=== PATIENT | female | born 1990 | race Caucasian/White ===

== ENCOUNTER 2019-05-03 17:32 | Outpatient (CLI) | payer MEDICAID ==
[2019-05-03 21:12] LABS: ADD UMIC NO; UR ASCORBIC ACID NEGATIVE (NEGATIVE); UR BILIRUBIN (Dip) NEGATIVE (NEGATIVE); UR BLOOD (Dip) NEGATIVE (NEGATIVE); UR CLARITY SLIGHTLY CLOUDY (CLEAR); UR COLOR YELLOW (YELLOW); UR GLUCOSE (Dip) NEGATIVE (NEGATIVE); UR KETONES (Dip) NEGATIVE (NEGATIVE); UR LEUKOCYTE ESTERASE (Dip) NEGATIVE Leu/ul (NEGATIVE); UR MUCUS FEW /HPF (NONE SEEN); UR NITRITE (Dip) NEGATIVE (NEGATIVE); UR RBC 1 /HPF (0-5); UR SPECIFIC GRAVITY (Dip) 1.013 (1.003-1.030); UR SQUAMOUS EPITHELIAL CELL MODERATE /HPF (FEW); UR TOTAL PROTEIN (Dip) NEGATIVE (NEGATIVE); UR UROBILINOGEN (Dip) NEGATIVE (NEGATIVE); UR WBC 1 /HPF (0-5)
[2019-05-03] MEDS: LACTATED RINGER'S 1,000 ML IV ×2 (21:40→23:00)
[2019-05-03 22:39] LABS: ABNORMAL IP MESSAGE 1; ADD MAN DIFF? NO; BASOPHILS % 0.1 % (0.0-2.0); EOSINOPHILS # 0.1 10^3/ul (0.0-0.5); EOSINOPHILS % 0.7 % (0.0-7.0); HEMOGLOBIN 12.1 g/dl (12.0-16.0); LYMPHOCYTES # 2.5 10^3/ul (0.8-2.9); LYMPHOCYTES % 24.8 % (15.0-51.0); MEAN CORPUSCULAR HEMOGLOBIN 28.8 pg (29.0-33.0); MEAN CORPUSCULAR HGB CONC 32.7 g/dl (32.0-37.0); MEAN CORPUSCULAR VOLUME 88.1 fl (82.0-101.0); MEAN PLATELET VOLUME 14.1 fl (7.4-10.4); MONOCYTE # 0.6 10^3/ul (0.3-0.9); MONOCYTES % 6.3 % (0.0-11.0); NEUTROPHIL # 6.8 10^3/ul (1.6-7.5); NEUTROPHILS % 67.7 % (39.0-77.0); PLATELET COUNT 153 10^3/UL (140-415); RED CELL DISTRIBUTION WIDTH 13.7 % (11.5-14.5)
[2019-05-03 22:40] LABS: POSITIVE DIFF @See below
[2019-05-03 23:06] LABS: ALANINE AMINOTRANSFERASE 22 IU/L (13-69); ALBUMIN 3.3 g/dl (3.3-4.9); ALBUMIN/GLOBULIN RATIO 1.03; ALKALINE PHOSPHATASE 91 IU/L (42-121); ANION GAP 9 (5-13); ASPARTATE AMINO TRANSFERASE 31 IU/L (15-46); BILIRUBIN,INDIRECT 0.5 mg/dl (0-1.1); BILIRUBIN,TOTAL 0.5 mg/dl (0.2-1.3); BLOOD UREA NITROGEN 9 mg/dl (7-20); CALCIUM 9.3 mg/dl (8.4-10.2); CARBON DIOXIDE 21 mmol/L (21-31); CHLORIDE 107 mmol/L (97-110); CREATININE 0.44 mg/dl (0.44-1.00); Estimated GFR > 60 mL/min (>60); GLUCOSE 79 mg/dl (70-220); POTASSIUM 3.8 mmol/L (3.5-5.1); SODIUM 137 mmol/L (135-144); TOTAL PROTEIN 6.5 g/dl (6.1-8.1); URIC ACID 4.7 mg/dl (3.1-7.9)
== END 2019-05-04 00:40 | disposition home or self-care (01) ==
LOC: OBT 17:32 → L-D 17:33
DX: O26.893 Other specified pregnancy related conditions, third trimester (principal); R20.0 Anesthesia of skin; Z3A.35 35 weeks gestation of pregnancy
CPT/HCPCS: 76818; 80053; 81001; 81003; 84560; 85025; 96360; 96361

== ENCOUNTER 2019-05-17 17:43 | Inpatient (IN) | payer MEDICAID ==
[2019-05-17 18:32] LABS: WHITE BLOOD COUNT 10.2 10^3/ul (4.8-10.8)
[2019-05-17 18:32] LABS: ABNORMAL IP MESSAGE 1; HEMOGLOBIN 11.9 g/dl (12.0-16.0); MEAN CORPUSCULAR HEMOGLOBIN 29.5 pg (29.0-33.0); MEAN CORPUSCULAR HGB CONC 33.1 g/dl (32.0-37.0); MEAN CORPUSCULAR VOLUME 89.3 fl (82.0-101.0); PLATELET COUNT 122 10^3/UL (140-415); RED BLOOD COUNT 4.03 10^6/ul (4.20-5.40); RED CELL DISTRIBUTION WIDTH 13.8 % (11.5-14.5)
[2019-05-17 18:35] LABS: ADD UMIC NO; UR ASCORBIC ACID NEGATIVE (NEGATIVE); UR BILIRUBIN (Dip) NEGATIVE (NEGATIVE); UR BLOOD (Dip) NEGATIVE (NEGATIVE); UR CLARITY CLEAR (CLEAR); UR COLOR STRAW (YELLOW); UR GLUCOSE (Dip) NEGATIVE (NEGATIVE); UR KETONES (Dip) NEGATIVE (NEGATIVE); UR LEUKOCYTE ESTERASE (Dip) NEGATIVE Leu/ul (NEGATIVE); UR NITRITE (Dip) NEGATIVE (NEGATIVE); UR SPECIFIC GRAVITY (Dip) 1.004 (1.003-1.030); UR TOTAL PROTEIN (Dip) NEGATIVE (NEGATIVE); UR UROBILINOGEN (Dip) NEGATIVE (NEGATIVE)
[2019-05-17 18:52] LABS: POSITIVE DIFF @See below
[2019-05-17 18:53] LABS: ADD MAN DIFF? YES; ALANINE AMINOTRANSFERASE 29 IU/L (13-69); ALBUMIN 3.4 g/dl (3.3-4.9); ALBUMIN/GLOBULIN RATIO 1.17; ALKALINE PHOSPHATASE 91 IU/L (42-121); ANION GAP 8 (5-13); ASPARTATE AMINO TRANSFERASE 31 IU/L (15-46); BILIRUBIN,INDIRECT 0.3 mg/dl (0-1.1); BILIRUBIN,TOTAL 0.3 mg/dl (0.2-1.3); BLOOD UREA NITROGEN 9 mg/dl (7-20); CALCIUM 9.3 mg/dl (8.4-10.2); CARBON DIOXIDE 20 mmol/L (21-31); CHLORIDE 109 mmol/L (97-110); CREATININE 0.47 mg/dl (0.44-1.00); Estimated GFR > 60 mL/min (>60); GLUCOSE 83 mg/dl (70-220); POTASSIUM 4.1 mmol/L (3.5-5.1); SODIUM 137 mmol/L (135-144); TOTAL PROTEIN 6.3 g/dl (6.1-8.1); URIC ACID 4.9 mg/dl (3.1-7.9)
[2019-05-17 18:56] LABS: PROTIME 12.3 Sec (11.9-14.9)
[2019-05-17 18:57] LABS: PARTIAL THROMBOPLASTIN TIME 25.3 Sec (23.0-35.0)
[2019-05-17 19:39] LABS: ANISOCYTOSIS 2+ (0-0); BAND NEUTROPHILS #M 0.1 10^3/ul (0.0-0.6); BAND NEUTROPHILS % (M) 1 % (0-4); GIANT THROMBO% (M) 6 % (0-0); LYMPHOCYTES #M 1.5 10^3/ul (0.8-2.9); LYMPHOCYTES % (M) 15 % (15-51); MICROCYTOSIS 1+ (0-0); MONOCYTE #M 0.3 10^3/ul (0.3-0.9); MONOCYTES % (M) 3 % (0-11); PLATELET ESTIMATE DECREASED; POLYCHROMASIA 1+ (0-0); SEG NEUT #M 8.3 10^3/ul (1.6-7.5); SEGMENTED NEUTROPHILS (M) % 81 % (39-77); SMUDGE%M 5 % (0-0)
[2019-05-17] MEDS ORDERED: LACTATED RINGER'S 1,000 ML IV (19:50)
[2019-05-17] MEDS ORDERED: METHYLERGONOVINE 0.2 MG INJ IM (20:00)
[2019-05-17] MEDS ORDERED: AZITHROMYCIN 500MG/NS (PMX) 250 ML IV (20:00)
[2019-05-17] MEDS ORDERED: CARBOPROST 250 MCG INJ IM (20:00)
[2019-05-17] MEDS ORDERED: CEFAZOLIN 2 GM/50 ML (PMX) 50 ML IVPB (20:00)
[2019-05-17] MEDS ORDERED: OXYTOCIN 30 UNITS/LR 500 ML IV (20:00)
[2019-05-17] MEDS ORDERED: MISOPROSTOL 200 MCG TAB PR (20:00)
[2019-05-17] MEDS: LACTATED RINGER'S 1,000 ML IV (21:14)
[2019-05-17] MEDS: AMPICILLIN 2 GM/NS (PMX) 100 ML IV (21:39)
[2019-05-17] MEDS ORDERED: morphine SULFATE/PF (10 MG/10 ML) INJ (21:52)
[2019-05-17] MEDS ORDERED: FENTAnyl 50 MCG/ML VIAL (21:52)
[2019-05-17] MEDS ORDERED: CEFAZOLIN 1 GM INJ (22:00)
[2019-05-17] MEDS ORDERED: DEXAMETHASONE 4 MG/ML 1 ML INJ (22:03)
[2019-05-17] MEDS ORDERED: ONDANSETRON 4 MG INJ (22:03)
[2019-05-17] MEDS ORDERED: MIDAZOLAM 1 MG/ML 2 ML INJ (22:32)
[2019-05-17] MEDS ORDERED: HYDROmorphONE 0.5 MG/0.5 ML SYG IV (23:00)
[2019-05-17] MEDS ORDERED: ZOLPIDEM 5 MG TAB PO (23:00)
[2019-05-17] MEDS ORDERED: ONDANSETRON 4 MG INJ IV (23:00)
[2019-05-17] MEDS ORDERED: NALOXONE (0.4 MG/ML) INJ IV (23:00)
[2019-05-17] MEDS ORDERED: DIPHENHYDRAMINE 50 MG INJ (23:14)
[2019-05-18] MEDS: OXYTOCIN 30 UNITS/LR 500 ML IV ×2 (01:05→02:33)
[2019-05-18] MEDS: DIPHENHYDRAMINE 50 MG INJ IV (01:16)
[2019-05-18] MEDS: LACTATED RINGER'S 1,000 ML IV ×3 (02:22→16:54)
[2019-05-18] MEDS ORDERED: METHYLERGONOVINE 0.2 MG INJ IM (02:30)
[2019-05-18] MEDS ORDERED: MISOPROSTOL 200 MCG TAB PR (02:30)
[2019-05-18] MEDS ORDERED: OXYCODONE/ACETAMINOPHEN (5/325) TAB PO ×2 (02:30)
[2019-05-18] MEDS ORDERED: CARBOPROST 250 MCG INJ IM (02:30)
[2019-05-18] MEDS ORDERED: OXYTOCIN 30 UNITS/LR 500 ML IV (02:30)
[2019-05-18 04:59] LABS: ADD MAN DIFF? NO
[2019-05-18 05:10] LABS: WHITE BLOOD COUNT 16.3 10^3/ul (4.8-10.8)
[2019-05-18 05:10] LABS: BASOPHILS % 0.1 % (0.0-2.0); EOSINOPHILS % 0.1 % (0.0-7.0); HEMATOCRIT 37.5 % (37.0-47.0); HEMOGLOBIN 12.4 g/dl (12.0-16.0); LYMPHOCYTES % 6.7 % (15.0-51.0); MEAN CORPUSCULAR HEMOGLOBIN 29.4 pg (29.0-33.0); MEAN CORPUSCULAR HGB CONC 33.1 g/dl (32.0-37.0); MEAN CORPUSCULAR VOLUME 88.9 fl (82.0-101.0); MONOCYTES % 2.3 % (0.0-11.0); NEUTROPHIL # 14.7 10^3/ul (1.6-7.5); NEUTROPHILS % 90.2 % (39.0-77.0); PLATELET COUNT 122 10^3/UL (140-415); RED BLOOD COUNT 4.22 10^6/ul (4.20-5.40); RED CELL DISTRIBUTION WIDTH 13.8 % (11.5-14.5)
[2019-05-18 05:11] LABS: ABNORMAL IP MESSAGE 1; LYMPHOCYTES # 1.1 10^3/ul (0.8-2.9); MONOCYTE # 0.4 10^3/ul (0.3-0.9)
[2019-05-18 05:28] LABS: POSITIVE DIFF @See below
[2019-05-18] MEDS: SENNA/DOCUSATE NA (8.6MG/50MG) TAB PO ×2 (08:55→20:28)
[2019-05-18 14:57] LABS: RAPID PLASMA REAGIN NONREACTIVE (NR)
[2019-05-18] MEDS: LANOLIN HPA 1 PKT TOP (21:44)
[2019-05-18] MEDS: KETOROLAC 30 MG INJ IV (21:44)
[2019-05-19 05:14] LABS: ABNORMAL IP MESSAGE 1; ADD MAN DIFF? NO; BASOPHILS % 0.1 % (0.0-2.0); EOSINOPHILS # 0.2 10^3/ul (0.0-0.5); EOSINOPHILS % 1.9 % (0.0-7.0); HEMATOCRIT 31.9 % (37.0-47.0); HEMOGLOBIN 10.2 g/dl (12.0-16.0); LYMPHOCYTES # 2.1 10^3/ul (0.8-2.9); LYMPHOCYTES % 22.7 % (15.0-51.0); MEAN CORPUSCULAR HEMOGLOBIN 29.1 pg (29.0-33.0); MEAN CORPUSCULAR VOLUME 90.9 fl (82.0-101.0); MEAN PLATELET VOLUME 13.5 fl (7.4-10.4); MONOCYTE # 0.5 10^3/ul (0.3-0.9); MONOCYTES % 5.6 % (0.0-11.0); NEUTROPHIL # 6.4 10^3/ul (1.6-7.5); NEUTROPHILS % 69.3 % (39.0-77.0); PLATELET COUNT 110 10^3/UL (140-415); RED BLOOD COUNT 3.51 10^6/ul (4.20-5.40); RED CELL DISTRIBUTION WIDTH 14.5 % (11.5-14.5)
[2019-05-19 05:14] LABS: WHITE BLOOD COUNT 9.3 10^3/ul (4.8-10.8)
[2019-05-19 05:20] LABS: POSITIVE DIFF @See below
[2019-05-19] MEDS: IBUPROFEN 800 MG TAB PO ×3 (05:44→22:10)
[2019-05-19] MEDS: SENNA/DOCUSATE NA (8.6MG/50MG) TAB PO ×2 (09:33→22:10)
[2019-05-20] MEDS: IBUPROFEN 800 MG TAB PO ×2 (05:36→14:36)
[2019-05-20] MEDS: SENNA/DOCUSATE NA (8.6MG/50MG) TAB PO (08:18)
[2019-05-20] MEDS: DIPHTH/TET/ACEL PERTUSS (ADULT) 0.5 ML VIAL IM* (09:00)
== END 2019-05-20 18:36 | disposition home or self-care (01) | DRG 785 ==
LOC: OBT 17:43 → L-D 17:44 → MS1 05-18 02:14 → OBT 19:46 → L-D 19:46
PROC: 10D00Z1 Extraction of Products of Conception, Low, Open Approach (ICD-10-PCS; principal; 2019-05-17 22:00)
PROC: 0UT70ZZ Resection of Bilateral Fallopian Tubes, Open Approach (ICD-10-PCS; 2019-05-17 22:00)
DX: O65.5 Obstructed labor due to abnormality of maternal pelvic organs (principal); O34.211 Maternal care for low transverse scar from previous cesarean delivery; K66.0 Peritoneal adhesions (postprocedural) (postinfection); Z3A.37 37 weeks gestation of pregnancy; Z37.0 Single live birth; Z30.2 Encounter for sterilization
CPT/HCPCS: 76815; 76818; 80053; 81003; 84560; 85025; 85610; 85730; 86592; 86850; 86900; 86901; 88302; 90715; 99464